=== PATIENT | male | born 1945 | race Caucasian/White ===

== ENCOUNTER 2017-01-28 09:46 | Emergency (ER) | payer MEDICARE, OTHER ==
[~2017-01-28] VITALS: Ht 182.9 cm; Wt 83.9 kg
[~2017-01-28 09:46] MED LIST: AMIODARONE HCL200 MG PO; ASPIRIN EC81 MG PO; CARVEDILOL12.5 MG PO; CITALOPRAM HBR20 MG PO; HYDROCODON-ACE1 EA10 PO; IBUPROFEN200 M1 PO; KLOR-CON20 MEQ PO; LIPITOR40 MG PO; LISINOPRIL5 MG PO; LORAZEPAM0.5 MG PO; MAGNESIUM500 MG PO; MEXILETINE HCL250 MG PO; NORCO 5-325 TA1 EACH PO; PERCOCET 7.5-31 EACH
== END 2017-01-28 14:00 | disposition home or self-care (01) ==
LOC: ED 09:46
DX: R10.9 Unspecified abdominal pain (principal); I25.2 Old myocardial infarction; Z86.73 Personal history of transient ischemic attack (TIA), and cerebral infarction without residual deficits; Z79.899 Other long term (current) drug therapy; Z79.82 Long term (current) use of aspirin
CPT/HCPCS: 76705; 80053; 81001; 85025; 99284

== ENCOUNTER 2017-10-18 07:10 | Day surgery (SDC) | payer MEDICARE, OTHER ==
[~2017-10-18] VITALS: Ht 182.9 cm; Wt 83.9 kg
--- NOTE | 2017-10-18 09:57 | NUR ---
10/18/17 0956 Gertrudis Vides 0949 PATIENT ARRIVES TO PACU, UNRESPONSIVE TO VERBAL OR PAINFUL STIMULI. RESP EVEN AND UNLABORED, ORAL AIRWAY IN PLACE, ARRIVES ON MASK AT 10 LITERS, DECREASED TO 6 LITERS ON ARRIVAL. 0955 PATIENT CONTINUES TO BE UNRESPONSIVE TO PAIN OR VERBAL STIMULI.
--- NOTE | 2017-10-19 17:13 | OR ---
[facility] [address] [place], [place] [address] Signed DATE OF OPERATION: 10/18/2017 SURGEON: Edison Doss MD PREOPERATIVE DIAGNOSES: 1. History of multiple polyps in 2017 (six tubular adenomas). 2. History of low anterior resection with coloproctostomy 2003 for colon cancer. 3. AICD device. POSTOPERATIVE DIAGNOSIS: Polyps x8. PROCEDURE: Total colonoscopy to cecum with cold morcellation polypectomy x4 and cold snare polypectomy x4. ANESTHESIA: Intravenous sedation propofol infusion, Edison Yang CRNA. INDICATION: This 72-year-old white man is well known to me from the past having undergone low anterior resection for colon cancer in 2003. A year ago, he underwent colonoscopy for surveillance and was found to have 6 tubular adenomas. He is symptom free. He does have an AICD in place related to myocardial infarction in the past. He is admitted for surveillance colonoscopy, understand the risks of bleeding, infection, and perforation. FINDINGS: The prep was excellent. Complete colonoscopy was undertaken of the cecum without problem. The anastomosis was a low anastomosis, but widely patent. There were eight polyps in total, six of them were paired. Two were in the cecum, two at the hepatic flexure, two in the transverse colon and one in each at 40 cm and 20 cm from the anal verge. DESCRIPTION OF PROCEDURE: The patient was brought to the endoscopy suite and placed in lateral decubitus position, given intravenous sedation with propofol infusional technique by the camp director with full cardiopulmonary monitoring. Digital rectal examination was normal. An Olympus video colonoscope was passed in the rectum and manipulated throughout the colon. Polyps were noted initially in the transverse colon. Both were excised with Electronically Signed By: EDISON DOSS MD 10/19/17 1713 PATIENT NAME: DELMIS MACK OPERATIVE REPORT DATE OF : 49 REPORT #: [id number] PHYSICIAN: EDISON DOSS MD PCP: DAVID QIU DO REPORT IS CONFIDENTIAL AND NOT TO BE RELEASED WITHOUT AUTHORIZATION [facility] [address], [place] [address] Signed cold snare polypectomy technique and passed for pathology. The scope was advanced subsequently to the cecum where 2 polyps were noted in the cecum, both were similarly excised. Both were sent for pathology. The scope was withdrawn from the cecum and an excellent prep was noted. At the hepatic flexure were 2 small polyps. They were both excised with cold morcellation technique without problem. Further withdrawal of scope showed a single polyp at 40 cm. It was excised with cold snare technique and another at 20 cm with cold morcellation technique. Further withdrawal of scope allowed for good visualization of the anastomosis, which was a very low coloproctostomy and this area was normal. The scope was removed. The patient was taken to recovery room in good condition. CONCLUDING DIAGNOSIS: Polyps x8. PLAN: Recommend repeat colonoscopy in 1 year, sooner if symptoms should occur. He will return to the ongoing care of Dr. Qiu in the meantime. MD NUBIA Olivia/MANUELITO /[id number] cc: David Qiu DO Copies: DAVID QIU DO ~ Electronically Signed By: EDISON DOSS MD 10/19/17 1713 PATIENT NAME: DELMIS MACK OPERATIVE REPORT DATE OF : 49 REPORT #: [id number] PHYSICIAN: EDISON DOSS MD PCP: DAVID QIU DO REPORT IS CONFIDENTIAL AND NOT TO BE RELEASED WITHOUT AUTHORIZATION
== END 2017-10-18 10:25 | disposition home or self-care (01) ==
LOC: OPS 07:10 → DS 07:10 → OPS 08:30
PROVIDERS: Surgery
PROC: 0DBL8ZZ Excision of Transverse Colon, Via Natural or Artificial Opening Endoscopic (ICD-10-PCS; 2017-10-18)
PROC: 0DBE8ZZ Excision of Large Intestine, Via Natural or Artificial Opening Endoscopic (ICD-10-PCS; 2017-10-18)
PROC: 0DBH8ZZ Excision of Cecum, Via Natural or Artificial Opening Endoscopic (ICD-10-PCS; principal; 2017-10-18 08:30)
DX: Z12.11 Encounter for screening for malignant neoplasm of colon (principal); D12.0 Benign neoplasm of cecum; D12.3 Benign neoplasm of transverse colon; D12.6 Benign neoplasm of colon, unspecified; K63.5 Polyp of colon; F41.9 Anxiety disorder, unspecified; I25.10 Atherosclerotic heart disease of native coronary artery without angina pectoris; E78.5 Hyperlipidemia, unspecified; I10 Essential (primary) hypertension; I25.2 Old myocardial infarction; G89.29 Other chronic pain; Z86.010 Personal history of colon polyps; Z95.810 Presence of automatic (implantable) cardiac defibrillator; Z85.038 Personal history of other malignant neoplasm of large intestine; Z93.4 Other artificial openings of gastrointestinal tract status; Z87.891 Personal history of nicotine dependence; Z79.82 Long term (current) use of aspirin; Z79.899 Other long term (current) drug therapy; Z86.73 Personal history of transient ischemic attack (TIA), and cerebral infarction without residual deficits
CPT/HCPCS: 88305; J2704; J7120

== ENCOUNTER 2018-10-09 10:45 | Day surgery (SDC) | payer MEDICARE, OTHER ==
[~2018-10-09] VITALS: Ht 182.9 cm; Wt 79.4 kg
--- NOTE | 2018-10-09 14:47 | NUR ---
10/09/18 1447 Mindy Aleman 1440-PATIENT ARRIVED TO PACU ON 4L PLACED ON 2L NC. PATIENT REACTIVE TO VOICE SLIGHTLY OPENS EYES AND BACK TO SLEEP. RR EVEN. ABDOMEN SOFT. LAYING LEFT LATERAL. APACED 1447-PATIENT AROUSING TO VERBAL STIMULI DR. DOSS TALKED TO PATIENT. HOB ELEVATED AND PATIENT REPOSITIONED TO BACK ENCOURAGED TO PASS GAS
--- NOTE | 2018-10-11 12:32 | OR ---
[facility] [address] [place], [place] [address] Signed DATE OF OPERATION: 10/09/2018 SURGEON: Edison Doss MD PREOPERATIVE DIAGNOSES: 1. History of sigmoid resection for colon carcinoma. 2. Multiple polyps in 2018. POSTOPERATIVE DIAGNOSIS: Small polyp in right colon (excised). PROCEDURE PERFORMED: Total colonoscopy to cecum with cold morcellation polypectomy x1. ANESTHESIA: Intravenous sedation, propofol infusion, by Mayte Pelaez CRNA. INDICATION: This 73-year-old white man is well known to me from the past and is now a patient of Valeria Nuno PA-C. A year ago he underwent colonoscopy, where he was found to have multiple polyps. The patient has complex past medical history including sigmoid resection for colon cancer number of years ago, history of pulmonary embolism and underlying cardiovascular disease for which he has a pacemaker and AICD device. He is admitted at this time to undergo surveillance colonoscopy on the basis of his prior polyps a year ago, which were multiple in number. He understands risks of bleeding, infection, and perforation and wished to proceed. FINDINGS: Prep was good. Complete colonoscopy was undertaken to the cecum. The coloproctostomy was widely patent. There was one small polyp in the distal ascending colon, which was excised with cold morcellation technique. The remaining colon was normal except for few diverticula. DESCRIPTION OF PROCEDURE: The patient was brought to endoscopy suite and placed in lateral decubitus position. Given intravenous sedation to the point of slurred speech and nystagmus. Digital rectal examination was normal. The Olympus video colonoscope was passed in the rectum and manipulated throughout the colon ultimately intubating the cecum itself. The ileocecal valve and appendiceal Electronically Signed By: EDISON DOSS MD 10/11/18 1232 PATIENT NAME: DELMIS MACK OPERATIVE REPORT DATE OF : 49 REPORT #: [id number] PHYSICIAN: EDISON DOSS MD PCP: VALERIA NUNO PA-C REPORT IS CONFIDENTIAL AND NOT TO BE RELEASED WITHOUT AUTHORIZATION [facility] [address] [place], [place] [address] Signed orifice were normal. The scope was withdrawn from that point and examination undertaken showing a very small polyp in the distal ascending colon. This was excised with cold morcellation technique without problem. The scope was further withdrawn and there were few scattered diverticula of the sigmoid and then the coloproctostomy well identified and widely patent. The rectum was normal. The scope was removed and the patient was taken to recovery room in good condition. CONCLUDING DIAGNOSIS: Polyp of right colon excised. PLAN: Recommend repeat colonoscopy in 3 years, sooner if clinically indicated. He will return to the ongoing care of PA. Hieu MD NUBIA Olivia/MANUELITO /[id number] cc: Valeria Nuno PA-C Copies: ~ Electronically Signed By: EDISON DOSS MD 10/11/18 1232 PATIENT NAME: DELMIS MACK OPERATIVE REPORT DATE OF : 49 REPORT #: [id number] PHYSICIAN: EDISON DOSS MD PCP: VALERIA NUNO PA-C REPORT IS CONFIDENTIAL AND NOT TO BE RELEASED WITHOUT AUTHORIZATION
== END 2018-10-09 15:12 | disposition home or self-care (01) ==
LOC: DS 10:45 → OPS 10:45 → DS 12:00 → OPS 12:00
PROVIDERS: Surgery
PROC: 0DBK8ZZ Excision of Ascending Colon, Via Natural or Artificial Opening Endoscopic (ICD-10-PCS; principal; 2018-10-09 12:00)
DX: Z12.11 Encounter for screening for malignant neoplasm of colon (principal); D12.2 Benign neoplasm of ascending colon; I10 Essential (primary) hypertension; F41.9 Anxiety disorder, unspecified; I25.10 Atherosclerotic heart disease of native coronary artery without angina pectoris; E11.9 Type 2 diabetes mellitus without complications; E78.5 Hyperlipidemia, unspecified; I25.2 Old myocardial infarction; Z86.010 Personal history of colon polyps; Z87.891 Personal history of nicotine dependence; Z85.038 Personal history of other malignant neoplasm of large intestine; Z95.810 Presence of automatic (implantable) cardiac defibrillator; Z86.711 Personal history of pulmonary embolism; Z79.899 Other long term (current) drug therapy; Z79.82 Long term (current) use of aspirin
CPT/HCPCS: J2704; J7120

== ENCOUNTER 2022-02-02 16:50 | Emergency (ER) | payer MEDICARE, OTHER ==
[~2022-02-02] VITALS: Ht 182.9 cm; Wt 88.0 kg
[~2022-02-02 16:50] MED LIST changes: +IBUPROFEN600 MG PO; +OXYCODON-ACETA1 EAC2 PO; +TYLENOL325 MG PO
== END 2022-02-02 20:43 | disposition home or self-care (01) ==
LOC: ED 16:50
DX: T78.3XXA Angioneurotic edema, initial encounter (principal); Z95.0 Presence of cardiac pacemaker; Z88.8 Allergy status to other drugs, medicaments and biological substances; Z79.899 Other long term (current) drug therapy
CPT/HCPCS: 36415; 80053; 85025; 96374; 96375; 99283-25; J1200; J2930; J7040

== ENCOUNTER 2023-02-14 09:57 | Day surgery (SDC) | payer MEDICARE, OTHER ==
[2023-02-11 10:51] VITALS: BP 114/65
[~2023-02-14] VITALS: Ht 182.9 cm; Wt 90.9 kg
--- NOTE | ~2023-02-14 | OR ---
[facility] [address] [place], [place] [address] Draft DATE OF OPERATION: 02/14/2023 SURGEON: Edison Doss MD PREOPERATIVE DIAGNOSES: 1. History of sigmoid resection for colon cancer (2003). 2. Colon screening. POSTOPERATIVE DIAGNOSIS: Polyps x5. PROCEDURE: Total colonoscopy to cecum with cold morcellation polypectomy x4 and cold snare polypectomy x1. ANESTHESIA: Intravenous sedation; propofol infusion, Edison Yang CRNA. INDICATION: This 77-year-old white man is patient of TEE Hagen and well known to me from the past having undergone sigmoid resection for colon cancer in 2003. He is here for screening colonoscopy. His last colonoscopy was in 2019, at which time he was found to have a tubular adenoma of the ascending colon. He has no current symptoms of bleeding, diarrhea, or constipation. He does have significant underlying cardiovascular disease and does have an AICD device implanted in the past. He is admitted at this time to undergo colonoscopy. He understands the risk of bleeding, infection, and perforation. FINDINGS: The prep was excellent. Complete colonoscopy was undertaken to the cecum without question. He had three small polyps in the region of the ileocecal valve. All coalesced together and completely excised with cold morcellation technique and another polyp in the cecum proper also excised. There was a polyp in the right colon additionally excised and in the transverse colon excised by cold snare technique and one in the left colon as well. In total, five polyps were excised. DESCRIPTION OF PROCEDURE: The patient was brought to the endoscopy suite and placed in the lateral decubitus position, given intravenous sedation to the point of slurred speech and nystagmus. Digital rectal examination was normal. PATIENT NAME: DELMIS MACK OPERATIVE REPORT DATE OF : 49 REPORT #: [id number] PHYSICIAN: EDISON DOSS MD PCP: VALERIA LUTZ PA-C REPORT IS CONFIDENTIAL AND NOT TO BE RELEASED WITHOUT AUTHORIZATION [facility] [address] [place], [place] [address] Draft An Olympus video colonoscope was passed in the rectum and manipulated throughout the colon ultimately intubating the cecum itself. The ileocecal valve was abnormal for three small polypoid changes on the edge of it. These were excised with cold morcellation technique. Another small polyp was noted at the cecum, which was excised. Further withdrawal showed a small polyp in the ascending colon, excised with cold morcellation technique and he had another in the transverse colon excised with cold snare technique. Further withdrawal showed a small polyp of the britni left colon excised with cold morcellation technique. The rectum was normal. Scope was removed and the patient was taken to the recovery room in good condition. CONCLUDING DIAGNOSIS: Polyps x5. PLAN: Recommend repeat colonoscopy in two years, sooner if clinically indicated. He will return to the ongoing care of TEE Hagen. MD NUBIA Olivia/MANUELITO /[id number] cc: TEE Hagen. Copies: ~ PATIENT NAME: FREDERICKDELMISKAMRAN HERNANDEZ OPERATIVE REPORT DATE OF : 49 REPORT #: [id number] PHYSICIAN: EDISON DOSS MD PCP: VALERIA LUTZ PA-C REPORT IS CONFIDENTIAL AND NOT TO BE RELEASED WITHOUT AUTHORIZATION
[~2023-02-14 09:57] MED LIST changes: +CRESTOR20 MG PO; +ENTRESTO 24 MG1 EACH PO; +ENTRESTO 49 MG1 EACH PO; +K-TAB ER20 MEQ PO; +LOW DOSE ASPIRI81 MG PO; +MONTELUKAST SODI5 MG PO; +NORVASC5 MG PO
[2023-02-14 10:04] VITALS: BP 147/69
--- NOTE | 2023-02-14 11:07 | NUR ---
02/14/23 1107 Mindy Aleman 1103-PATIENT ARRIVED TO PACU ON 10L MASK NONAROUSABLE LAYING LEFT LATERAL ORAL AIRWAY IN PLACE. PLACED ON 6L MASK 100% RR EVEN. APACED. ABDOMEN SOFT IVF INFUSING. PATIENT PASSING GAS
[2023-02-14 11:41] VITALS: BP 110/60
--- NOTE | 2023-02-18 15:23 | PATH ---
[facility] [address] [place], [place] [address] Signed SPECIMEN(S): A TRANSVERSE COLON POLYP SPECIMEN(S): B ILEOCECAL VALVE COLON POLYP SPECIMEN(S): C ASCENDING/RIGHT COLON POLYPS SPECIMEN(S): D DESCENDING/LEFT COLON POLYP SPECIMEN SOURCE: A. TRANSVERSE COLON POLYP B. ILEOCECAL VALVE COLON POLYP C. ASCENDING/RIGHT COLON POLYPS D. DESCENDING/LEFT COLON POLYP CLINICAL HISTORY: History of colon cancer, polyps. Polyps. FINAL PATHOLOGIC DIAGNOSIS: A. Transverse colon polyp: - Tubular adenoma (one fragment). B. Ileocecal valve colon polyp: - Tubular adenoma (two fragments). C. Ascending / right colon polyps: - Tubular adenoma (two fragments). D. Descending / left colon polyp: - Tubular adenoma (one fragment). JVR:[id number] MICROSCOPIC EXAMINATION: Histologic sections of all submitted blocks are examined by light microscopy. These findings, together with the gross examination, support the pathologic diagnosis. GROSS DESCRIPTION: A. The specimen, labeled and designated "[place], " and designated on the requisition "polypectomy, colon, transverse," is received in formalin and consists of one mccracken soft polypoid tissue measuring 0.6 x 0.3 x 0.4 cm, specimen is submitted entirely in (A1). B. The specimen, labeled and designated "[place], " and designated on the requisition "polypectomy ileum, ileocecal valve," is received in formalin and consists of three mccracken soft polypoid tissue fragments measuring 0.2 to 0.5 cm in length and up to 0.3 cm in diameter, all specimens are submitted entirely in (B1). C. The specimen, labeled and designated "[place], " and designated on the PATIENT NAME: DELMIS NOVA PATHOLOGY DATE OF : 49 REPORT #: [id number] PHYSICIAN: ANNA NIELSON PCP: VALERIA LUTZ PA-C REPORT IS CONFIDENTIAL AND NOT TO BE RELEASED WITHOUT AUTHORIZATION [facility] [address] [place], [place] [address] Signed requisition "polypectomy, colon, ascending right x 2 polyps," is received in formalin and consists of 3 mccracken soft polypoid tissue fragments measuring 0.2 to 0.4 cm in length and up to 0.4 cm in greatest diameter and submitted entirely in (C1). D. The specimen, labeled and designated "[place], polypectomy colon, descending/left," is received in formalin and consists of two mccracken soft polypoid tissue fragments measuring 0.4 to 0.2 cm, specimens are submitted entirely in (D1). MMA (under the direct supervision of a pathologist) The Gross Description was prepared using a voice recognition system. The report was reviewed for accuracy; however, sound-alike word errors, addition and/or deletions may occur. If there is any question about this report, please contact Client Services. PERFORMING LABORATORY: Technical component was performed by [facility], [address] [place] [id number] (CLIA# [id number]). Professional interpretation was performed by [facility] - [facility], [address] [place] [phone] (CLIA#: [id number]). Diagnostician: Hari Hays MD Pathologist Electronically Signed 02/18/2023 Copies: ~ PATIENT NAME: NOVADELMISKAMRAN HERNANDEZ PATHOLOGY DATE OF : 49 REPORT #: [id number] PHYSICIAN: ANNA PATHOLOGY PCP: VALERIA LUTZ PA-C REPORT IS CONFIDENTIAL AND NOT TO BE RELEASED WITHOUT AUTHORIZATION
== END 2023-02-14 11:50 | disposition home or self-care (01) ==
LOC: DS 09:57 → OPS 09:57 → DS 11:00 → OPS 11:50
PROVIDERS: ATTEND Surgery
PROC: 0DBL8ZX Excision of Transverse Colon, Via Natural or Artificial Opening Endoscopic, Diagnostic (ICD-10-PCS; 2023-02-14)
PROC: 0DBC8ZX Excision of Ileocecal Valve, Via Natural or Artificial Opening Endoscopic, Diagnostic (ICD-10-PCS; 2023-02-14)
PROC: 0DBM8ZX Excision of Descending Colon, Via Natural or Artificial Opening Endoscopic, Diagnostic (ICD-10-PCS; 2023-02-14)
PROC: 0DBK8ZX Excision of Ascending Colon, Via Natural or Artificial Opening Endoscopic, Diagnostic (ICD-10-PCS; principal; 2023-02-14 11:00)
DX: Z12.11 Encounter for screening for malignant neoplasm of colon (principal); D12.2 Benign neoplasm of ascending colon; D12.4 Benign neoplasm of descending colon; D12.0 Benign neoplasm of cecum; D12.3 Benign neoplasm of transverse colon; Z85.038 Personal history of other malignant neoplasm of large intestine; Z86.010 Personal history of colon polyps; Z90.49 Acquired absence of other specified parts of digestive tract; I25.2 Old myocardial infarction; K43.2 Incisional hernia without obstruction or gangrene; E11.9 Type 2 diabetes mellitus without complications; I25.10 Atherosclerotic heart disease of native coronary artery without angina pectoris; E78.5 Hyperlipidemia, unspecified; I10 Essential (primary) hypertension; Z95.810 Presence of automatic (implantable) cardiac defibrillator; Z86.711 Personal history of pulmonary embolism; Z79.82 Long term (current) use of aspirin; Z79.899 Other long term (current) drug therapy
CPT/HCPCS: 00811; J2704; J7121

== ENCOUNTER 2024-07-24 08:55 | Day surgery (SDC) | payer MEDICARE, OTHER ==
[2024-07-21 09:33] VITALS: BP 96/75
[~2024-07-24] VITALS: Ht 182.9 cm; Wt 95.0 kg
[~2024-07-24 08:55] MED LIST changes: +ATORVASTATIN CA40 MG PO; +CIPRO500 MG PO; +IBLOOD GLUCOSE TEST STRIP 1 EA TEST VI PRN; +LACTATED RINGER'S 1,000 ML IV SCH; +LIDOCAINE HCL 1% 5 ML SDV INJ ONE
[2024-07-24 09:07] VITALS: BP 156/73
[2024-07-24] MEDS ORDERED: NALOXONE HCL 0.4 MG SYR IV PRN (10:30)
[2024-07-24] MEDS ORDERED: IBLOOD GLUCOSE TEST STRIP 1 EA TEST VI PRN (10:30)
[2024-07-24] MEDS ORDERED: LIDOCAINE HCL 2% 5 ML SDV ONE (10:33)
[2024-07-24] MEDS ORDERED: propofoL 200 MG/20 ML VIAL ONE (10:34)
--- NOTE | 2024-07-24 11:41 | NUR ---
07/24/24 1141 Evelina Mascorro 1127-PT ARRIVES TO PACU RESTING ON LT SIDE, PT NOT RESPONSIVE TO TACTILE OR VERBAL STIMULI. VSS ON 2L VIA NC, RR EVEN AND UNLABORED. 1130-PT O2 SATS DECREASED TO 89%, O2 INCREASED TO 4L VIA NC, SATS IMP[ROVED TO 95%. 1138-PT AWAKENS TO VOICE, AT BEDSIDE DISCUSSING PROCEDURE RESULTS AND PLAN OF CARE, ALL QUESTIONS ANSWERED. PT DENIES PAIN OR NAUSEA, ENCOURAGED TO PASS GAS. VSS ON 4L.
[2024-07-24 12:24] VITALS: BP 124/70
--- NOTE | 2024-07-28 17:22 | PATH ---
[facility] [address] [facility] [place], [place] [address] Signed SPECIMEN(S): A HEPATIC FLEXURE POLYP SPECIMEN(S): B TRANSVERSE POLYP SPECIMEN(S): C PROXIMAL DESCENDING POLYPS SPECIMEN(S): D SIGMOID POLYP SPECIMEN(S): E RECTAL POLYP SPECIMEN SOURCE: A. HEPATIC FLEXURE POLYP B. TRANSVERSE POLYP C. PROXIMAL DESCENDING POLYPS D. SIGMOID POLYP E. RECTAL POLYP CLINICAL HISTORY: History of colon polyps. Colon polyps (multiple) FINAL PATHOLOGIC DIAGNOSIS: A. Hepatic flexure polyp: - Hyperplastic polyp (one fragment). B. Transverse polyp: - Tubular adenoma (two fragments). C. Proximal descending polyps: - Tubular adenoma (three fragments). D. Sigmoid polyp: - Tubular adenoma (one fragment). E. Rectal polyp: - Tubular adenoma (one fragment). JVR:clv MICROSCOPIC EXAMINATION: Histologic sections of all submitted blocks are examined by light microscopy. These findings, together with the gross examination, support the pathologic diagnosis. GROSS DESCRIPTION: A. The specimen, labeled and designated "[place], hepatic flexure polyp," is received in formalin and consists of one mccracken soft tissue fragment, 0.8 cm. Entirely submitted in (A1). B. The specimen, labeled and designated "[place], transverse polyp," is received in formalin and consists of three mccracken soft tissue fragments, ranging from 0.2-0.4 cm. Entirely submitted in (B1). PATIENT NAME: DELMIS NOVA MARY PATHOLOGY DATE OF : 49 REPORT #: [id number] PHYSICIAN: ANNA NIELSON PCP: VALERIA LUTZ PA-C REPORT IS CONFIDENTIAL AND NOT TO BE RELEASED WITHOUT AUTHORIZATION [facility] [address] [place], [place] [address] Signed C. The specimen, labeled and designated "Nova, D, proximal descending polyp," is received in formalin and consists of four mccracken soft tissue fragments, ranging from 0.2-0.4 cm. Entirely submitted in (C1). D. The specimen, labeled and designated "Nova, D, sigmoid polyp," is received in formalin and consists of one mccracken soft tissue fragment, 0.3 cm. Entirely submitted in (D1). E. The specimen, labeled and designated "Nova, D, rectal polyp," is received in formalin and consists of one 0 tissue fragment, 0.3 cm. Entirely submitted in (E1). AB (under the direct supervision of a pathologist) The Gross Description was prepared using a voice recognition system. The report was reviewed for accuracy; however, sound-alike word errors, addition and/or deletions may occur. If there is any question about this report, please contact Client Services. PERFORMING LABORATORY: Technical component was performed by [facility], [address] [place] [id number] (CLIA# [id number]). Professional interpretation was performed by [facility] - [facility], [address] [place] [id number] (CLIA#: [id number]). Diagnostician: Hari Hays MD Pathologist Electronically Signed 07/28/2024 Copies: ~ PATIENT NAME: DELMIS NOVA PATHOLOGY DATE OF : 49 REPORT #: [id number] PHYSICIAN: ANNA PATHOLOGY PCP: VALERIA LUTZ PA-C REPORT IS CONFIDENTIAL AND NOT TO BE RELEASED WITHOUT AUTHORIZATION
--- NOTE | 2024-07-30 13:15 | OR ---
[facility] [address] [place], [place] [address] Signed DATE OF OPERATION: 07/24/2024 SURGEON: Edison Doss MD PREOPERATIVE DIAGNOSES: 1. History of low anterior resection for colon cancer 21 years ago. 2. History of multiple polyps; last colonoscopy in 2022, tubular adenoma x4. POSTOPERATIVE DIAGNOSIS: Multiple polyps (six polyps in five sites). PROCEDURES: 1. Total colonoscopy to cecum with cold snare polypectomy x2. 2. Cold morcellation polypectomy x4. ANESTHESIA: Intravenous sedation, propofol infusion; Mayte Pelaez CRNA INDICATIONS FOR THE PROCEDURE: This 79-year-old white man is a patient of TEE Hagen. 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 He has other medical problems including cardiovascular once, has an AICD pacemaker in place also. He last underwent colonoscopy in 2022, where he had four tubular adenomas. He is now to undergo surveillance colonoscopy, understand the risk of bleeding, infection, perforation. FINDINGS: The prep was excellent. Complete colonoscopy was undertaken of the cecum. The anastomosis was widely patent without sign of abnormality. He had six polyps total in five sites, all excised completely. DESCRIPTION OF PROCEDURE: The patient was brought to the endoscopy suite and placed in the lateral decubitus position given intravenous sedation with propofol infusional technique with full cardiopulmonary monitoring. Digital rectal examination was normal. An Olympus video colonoscope was passed into the rectum and manipulated throughout the colon noting widely patent anastomosis as part of the colorectal anastomosis. The scope was ultimately passed to the cecum. The ileocecal valve and appendiceal orifice were normal. The scope was withdrawn into the hepatic flexure with a small polyp, it was Electronically Signed By: EDISON DOSS MD 07/30/24 1315 PATIENT NAME: DELMIS MACK OPERATIVE REPORT DATE OF : 49 REPORT #: [id number] PHYSICIAN: EDISON DOSS MD PCP: VALERIA LUTZ PA-C REPORT IS CONFIDENTIAL AND NOT TO BE RELEASED WITHOUT AUTHORIZATION [facility] [address] [place], [place] [address] Signed quite obviously adenomatous, this was excised with cold snare technique. Another small polyp was noted in the right transverse colon, also excised with cold morcellation technique. Further withdrawal showed a polyp in the proximal left colon, excised with cold snare technique. He had another in the mid left colon, excised with cold morcellation technique and another just proximal to the anastomosis excised with cold morcellation technique. A very small polyp was noted in the rectum, which was excised as well. The scope was removed. The patient taken to the recovery room in good condition after retroflexed view was found to be normal. CONCLUDING DIAGNOSIS: Multiple polyps. PLAN: Recommend repeat colonoscopy in three years or sooner if symptoms should develop. He will return to the ongoing care of TEE Hagen. MD NUBIA Olivia/MANUELITO /[id number] cc: TEE Hagen Copies: ~ Electronically Signed By: EDISON DOSS MD 07/30/24 1315 PATIENT NAME: DELMIS MACK MARY OPERATIVE REPORT DATE OF : 49 REPORT #: [id number] PHYSICIAN: EDISON DOSS MD PCP: VALERIA LUTZ PA-C REPORT IS CONFIDENTIAL AND NOT TO BE RELEASED WITHOUT AUTHORIZATION
== END 2024-07-24 12:18 | disposition home or self-care (01) ==
LOC: OPS 08:55 → DS 08:55 → OPS 10:00 → DS 10:00 → OPS 11:00 → DS 11:15 → OPS 12:18
PROVIDERS: ATTEND Surgery
PROC: 0DBL8ZZ Excision of Transverse Colon, Via Natural or Artificial Opening Endoscopic (ICD-10-PCS; 2024-07-24)
PROC: 0DBP8ZZ Excision of Rectum, Via Natural or Artificial Opening Endoscopic (ICD-10-PCS; 2024-07-24)
PROC: 0DBG8ZZ Excision of Left Large Intestine, Via Natural or Artificial Opening Endoscopic (ICD-10-PCS; principal; 2024-07-24 10:00)
DX: D12.8 Benign neoplasm of rectum (principal); D12.5 Benign neoplasm of sigmoid colon; D12.4 Benign neoplasm of descending colon; D12.3 Benign neoplasm of transverse colon; K63.5 Polyp of colon; I10 Essential (primary) hypertension; E11.9 Type 2 diabetes mellitus without complications; I25.2 Old myocardial infarction; Z79.899 Other long term (current) drug therapy; Z87.891 Personal history of nicotine dependence; Z86.711 Personal history of pulmonary embolism; Z85.038 Personal history of other malignant neoplasm of large intestine; Z86.0101 Personal history of adenomatous and serrated colon polyps; Z95.810 Presence of automatic (implantable) cardiac defibrillator
CPT/HCPCS: 00811; 88305; J2003; J2704; J7121